=== PATIENT | female | born 1955 | race Caucasian/White ===

== ENCOUNTER 2020-01-28 21:00 | Emergency (ER) | payer OTHER, MEDICAID, SELFPAY ==
[~2020-01-28] VITALS: Ht 160 cm; Wt 54.4 kg
[2020-01-28 21:13] VITALS: BP 106/76
[2020-01-28 21:51] VITALS: BP 106/76
== END 2020-01-28 21:52 | disposition home or self-care (01) ==
LOC: MED 21:00
DX: R19.7 Diarrhea, unspecified (principal); Z20.828 Contact with and (suspected) exposure to other viral communicable diseases
CPT/HCPCS: 99283; U0003